=== PATIENT | female | born 1965 | race Caucasian/White ===

== ENCOUNTER 2020-06-14 09:06 | Observation (INO) | payer OTHER, SELFPAY ==
[2020-06-14] VITALS (10 sets, daily range): BP systolic 137–161; BP diastolic 70–98; PULSE 50–77; RESP 14–22; TEMP 36.6–37.1; O2SAT 94–100; BMI 38.7; BMI 37.0
--- NOTE | 2020-06-14 09:20 | EKG12_ITS ---
Test Reason : CP Blood Pressure : / mmHG Vent. Rate : 069 BPM Atrial Rate : 069 BPM P-R Int : 206 ms QRS Dur : 088 ms QT Int : 414 ms P-R-T Axes : 068 065 038 degrees QTc Int : 443 ms Normal sinus rhythm Normal ECG Confirmed by EFRAIN TRIPATHI, TAMMY ([id number]), medical editor ORI WEBB ([id number]) on 06/16/2020 11:01:37 AM Referred By: SALMA Confirmed By:TAMMY ZUNIGA MD
--- NOTE | 2020-06-14 09:21 | ED.VIS.GEN ---
History of Present Illness Chief Complaint: Chest Pain Narrative: Patient presents with chest tightness over the past 3 days. It is somewhat exertional, it is intermittent. She feels like she has to cough but is not coughing. She has no current shortness of breath she did notice both her legs slightly more swollen than normal, she tells me this is somewhat similar to her prior cardiomyopathy, however not quite as swollen. She has no fever chills. She has no abdominal pain. She has no radiation of the pain. She has no tearing sensation. She has no pleuritic component. She has no DVT or PE risk factors. Past Medical History - Allergies and Home Meds Allergies/Adverse Reactions: Allergies No Known Allergies Allergy (Verified 06/19/15 10:26) Primary Care Physician: Delaney Wheeler NP, DATA PROCESSING CLERK-C [Primary Care Provider] - Past Medical History: - - Pretension, history of cardiomyopathy which seems to have resolved Smoking Status: Never smoker Review of Systems All systems negative except as indicated General: Denies: Fever Eyes: Denies: Visual changes - bilaterally ENT: Denies: Sore throat Cardiovascular: Reports: Chest pain. Denies: Palpitations, Heart racing Respiratory: Denies: Dyspnea, Cough, Sputum Gastrointestinal: Denies: Abdominal pain, Nausea, Vomiting Genitourinary: Denies: Dysuria Musculoskeletal: Denies: Myalgias, Arthralgias, Neck pain Skin: Denies: Rash, Abscess Neurological: Denies: Headache, Weakness Psych: Denies: Depression, Anxiety Endocrine: Denies: Polyuria Hematologic: Denies: Easy bruising Physical Exam Vital Signs/Narrative: Vital Signs Temp Pulse Resp BP Pulse Ox 06/14/20 09:07 98.7 F 77 19 H 161/83 H 100 General: - - Patient is her normal self since she is known to me. She does not appear in significant distress. Head: Normocephalic Eyes: Perrl, EOMI ENT: Moist mucous membranes Neck: Supple Cardiovascular: Regular rate, Regular rhythm, No murmurs Respiratory: No distress, CTA bilaterally, Chest nontender Abdomen: Soft, Nontender Back: Nontender, Normal Inspection. Negative for: CVA tenderness Extremities: Nontender, No edema Skin: Normal color Neurological: Alert, Normal Strength, Normal Sensation Diagnostic/Tx/Re-eval - Rhythm Strip Rhythm Strip: Sinus Rhythm Rate: 69 Ectopy: None - EKG Initial EKG Interpretation: - - Normal sinus rhythm with a rate of 69. Normal OK interval. Normal QTC intervals. Subtle lateral nonspecific ST changes. Otherwise normal EKG Interpreted by emergency doctor - Medical Decision Making Patient has nonspecific ST changes, heart score is a 4. She will need admission for further cardiac work-up. ED Disposition - Plan for ED Patient: Disposition: Acute Care Hospital [facility] Diagnosis: Chest pain Referrals: Delaney Wheeler NP, DATA PROCESSING CLERK-C [Primary Care Provider] -
--- NOTE | 2020-06-14 09:35 | RAD_ITS ---
STUDY: X-RAY CHEST REASON FOR EXAM: Female, 54 years old. CHEST PAIN AND TIGHTNESS WITH ANXIETY. DRY COUGH SINCE SUNDAY. TECHNIQUE: Single AP portable view of the chest. COMPARISON: None. FINDINGS: EKG electrodes are seen. Mild degree of vascular congestion. There is no demonstrated pleural abnormality. Normal size heart. Normal mediastinum and ivania. Normal visualized pulmonary arteries. Normal visualized aortic arch and descending thoracic aorta. There is a dextroscoliosis of the thoracic spine. Prior JOSE rods fixation of the thoracic scoliosis. Normal visualized ribs, clavicles, and shoulders. There is no demonstrated abnormality of the visualized soft tissue structures of the upper abdomen. RAD/Chest 1 View (Portable) IMPRESSION: Mild degree of vascular congestion. Dextroscoliosis. Electronically Signed: Tyree Moran, at 9:48 EDT , Service support ,
[2020-06-14 09:40] LABS: Absolute Lymphocyte Count 1.42 X10^3/uL (0.83-4.51); Basophil# 0.03 X10^3/uL; Basophil% 0.4 % (0-1); Eosinophil# 0.06 X10^3/uL; Eosinophils% 0.9 % (0-5); Hematocrit 36.3 % (37-47); Hemoglobin 11.7 g/dL (12.0-15.0); Lymphocyte # 1.42 X10^3/ul (4.0); Lymphocyte % 20.2 % (19-41); Mean Corp Hgb Conc 32.2 g/dL (32-36); Mean Corpuscular Hgb 30.4 pg (27.0-32.0); Mean Corpuscular Volume 94.3 fL (81-99); Mean Platelet Vol. 9.9 fl (6.2-12.0); Monocyte# 0.46 X10^3/uL; Monocyte% 6.5 % (0-10); NRBC Flagged by Analyzer 0 % (0-5); Neutrophil # 5.04 X10^3/uL (2.7-7.7); Neutrophil % 71.6 % (47-70); Platelet Count 237 K/mm3 (150-450); RBC Distribution Width CV 13.2 % (11.6-14.6); RBC Distribution Width SD 45.1 fl (35.1-43.9); Red Blood Count 3.85 M/mm3 (4.2-5.4)
[2020-06-14 09:50] LABS: Anion Gap 4 (5-15); BUN 12 mg/dL (7-18); BUN/Creat Ratio 15.8 RATIO (10-20); Calcium,Total 8.7 mg/dL (8.5-10.1); Chloride 111 mmol/L (98-107); Creatinine, Serum 0.76 mg/dL (0.55-1.02); EST Glomerular Filtration Rate 85 mL/min (>60); Est Glom Filt Rate - Afr Amer 103 mL/min (>60); Estimated Creatinine Clearance 68.48 ml/min; Glucose 99 mg/dL (74-106); Potassium 3.5 mmol/L (3.5-5.1); Sodium Level 143 mmol/L (136-145)
[2020-06-14] MEDS: Aspirin 81 MG TAB.CHEW 324 MG PO (10:35)
--- NOTE | 2020-06-14 12:25 | EKG12_ITS ---
Test Reason : CP Blood Pressure : / mmHG Vent. Rate : 051 BPM Atrial Rate : 051 BPM P-R Int : 216 ms QRS Dur : 086 ms QT Int : 470 ms P-R-T Axes : 071 067 047 degrees QTc Int : 433 ms Sinus bradycardia with sinus arrhythmia with 1st degree A-V block Otherwise normal ECG When compared with ECG of 09-MAR-2014 14:53, Nonspecific T wave abnormality, improved in Inferior leads Nonspecific T wave abnormality no longer evident in Lateral leads Confirmed by CHARBEL TRIPATHI, VALARIE ([id number]), editor map ORI WEBB ([id number]) on 06/16/2020 11:37:41 AM Referred By: ALLISON Confirmed By:VALARIE BARGER MD
--- NOTE | 2020-06-14 13:04 | HP.PCM_ITS ---
Problem List (1) Chest pain Status: Acute History of Present Illness Date of Admission: 06/14/20 Chief Complaint: chest pain The patient is a 54 year old F whom for the past week, has been having some chest discomfort and dyspnea on exertion. Patient is normally very active and has had some bike rides up [facility]. Normally this provides no difficulty but earlier this week, patient was noticing shortness of breath that would get better when she would stop when she is riding uphill. So she had contacted her primary care doctor and her doctor recommended she come to the emergency room. In the emergency room her work-up was unremarkable. Patient has never had chest pain like this before. They were concerned and patient was admitted to the hospitalist service for further cardiac evaluation. [] Past Medical History Medical History: Medical History (Last Updated 06/14/20 @ 13:[address] Jaswinder Lizama, ) Scoliosis M41.9 spinal rusty HTN (hypertension) I10 Allergies No Known Allergies Allergy (Verified 06/19/15 10:26) Home Medications: Ambulatory Orders Medication Instructions Recorded Lisinopril/Hydrochlorothiazide 1 tablet PO DAILY 06/19/15 [Lisinopril-Hctz 20-25 mg Tab] Aspirin E.C. [Ecotrin] 81 mg PO DAILY@0800 06/14/20 Rutin/Hesp/Bioflav/C/[id number] 1 ea PO DAILY 06/14/20 [Bioflex Tablet] Lives: With Family Smoking Status: Never smoker Tobacco Use: Non-smoker Alcohol: Rare Drugs: None - *Family History Paternal History Items: Heart Disease Review of Systems Constitutional: Denies: Anorexia, Night Sweats Eyes: Denies: Blurred vision, Double vision HEENT: Denies: Head Aches, Sinus Congestion, Sinus Drainage Cardiovascular: Reports: Chest Pain. Denies: Palpitations Respiratory: Reports: Shortness of breath upon exertion, Sputum production. Denies: Cough, Shortness of breath at rest Gastrointestinal: Denies: Abdominal Pain, Nausea, Vomiting Genitourinary: Denies: Dysuria Musculoskeletal: Denies: Joint Pain, Joint Tenderness Skin: Denies: Rash, Wounds Neurological: Denies: Numbness, Tingling, Focal weakness Hematologic/ Lymphatic: Denies: Easy Bruising, Easy Bleeding, Hx of blood clot Comment: All review of systems were negative except as mentioned above in the history of present illness and the other review of systems. VTE Information - Inpt Only VTE Present on Admission: No VTE Mechan Device Prophylaxis: None VTE Pharm Prophylaxis ordered?: No Patient Problems: Active and Suspected Problems Chest pain (Acute) - Physical Exam Vitals/I&O's: Vital Signs Temp Pulse Resp BP Pulse Ox 36.8 C 58 L 14 157/78 H 95 06/14/20 12:34 06/14/20 12:34 06/14/20 12:34 06/14/20 12:34 06/14/20 12:34 Oxygen Delivery Method Room Air Weight: 93.259 kg Body Mass Index (BMI) 37.0 General: Alert, No apparent distress HEENT: Atraumatic, Normocephalic Oral: Moist Mucosa, No Gingival or Mucosal Lesions/ Ulcerations Neck: No Nodes, Thyroid Normal Size and Texture Lungs: Clear to auscultation, Normal air movement, No rhonchi, No wheeze, No rales Cardiovascular: Regular rate, Regular Rhythm, Normal S1, Normal S2, No murmurs Abdomen: Bowel Sounds Present, Soft, Non Tender, Non-Distended, No Hepato- splenomegaly Extremities: No edema, No Calf Tenderness Skin: No rashes, No breakdown Musculoskeletal: - - No reproducible sternal tenderness. Psych/Mental Status: Normal Affect, Appropriate Laboratory Results 06/14/20 09:15: WBC 7.0, RBC 3.85 L, Hgb 11.7 L, Hct 36.3 L, MCV 94.3, MCH 30.4, MCHC 32.2, RDW Std Deviation 45.1 H, RDW Coeff of Bello 13.2, Plt Count 237, MPV 9.9, Immature Gran % (Auto) 0.400, Neut % (Auto) 71.6 H, Lymph % (Auto) 20.2, Kimble % (Auto) 6.5, Eos % (Auto) 0.9, Baso % (Auto) 0.4, Absolute Neuts (auto) 5.0, Absolute Lymphs (auto) 1.42, Nucleated RBC % 0 06/14/20 09:15: Sodium 143, Potassium 3.5, Chloride 111 H, Carbon Dioxide 28.0, Anion Gap 4 L, BUN 12, Creatinine 0.76, Estim Creat Clear Calc 68.48, Est GFR (MDRD) Af Amer 103, Est GFR (MDRD) Non-Af 85, BUN/Creatinine Ratio 15.8, Glucose 99, Calcium 8.7, Troponin I < 0.015 06/14/20 09:15: B-Natriuretic Peptide 386.0 H 06/14/20 12:33: Troponin I < 0.015 Chest x-ray personally reviewed showed significant scoliosis with convexity to the right. Vertebral rusty in place. No pulmonary effusions, infiltrate nor edema. EKGs personally reviewed and showed no acute changes. Current Medications Sodium Chloride () 10 - 40 ml IV UD PRN PRN Reason: SALINE FLUSH Assessment/Plan All Active Problems Chest pain (Acute) 1. Chest pain * LISA score of 1. Lila score of 72. * Plan is for treadmill stress test on the . * Patient did receive aspirin in the emergency room and will continue * Supportive management * Check a d-dimer, and if greater than 0.52, check a CTA of the chest. 2. Hypertension: Continue lisinopril/HCTZ 3. VTE prophylaxis: Not indicated as patient is low risk given her observation status 4. Advanced care planning: Patient is full CODE STATUS. OBSV E&M: 05736 Initial observation care L2
[2020-06-14 13:50] LABS: D-Dimer Quantitative (DVT/PE) 1.99 FEU/ug/m (0.27-0.49)
--- NOTE | 2020-06-14 13:57 | CT_ITS ---
STUDY: CTA CHEST REASON FOR EXAM: Female, 54 years old. CHEST PAIN W/ ANXIETY X 3 DAYS. DRY COUGH, B/L LEG SWELLING, ELEVATED D-DIMER. RADIATION DOSAGE (If Supplied By Facility): CTDIvol = ( 12.31 ) mGy, DLP = ( 509.94 ) mGycm TECHNIQUE: The examination was performed with the intravenous administration of IV 100mL Isovue-370. Post-processing of the angiographic images was performed, with multiplanar reformation and 3D reconstruction. Individualized dose optimization techniques were used for this CT. COMPARISON: Comparison is made with prior chest radiograph done earlier today. FINDINGS: Small bilateral benign appearing axillary lymph nodes. Normal enhancement of the main pulmonary artery and right and left pulmonary arteries. Normal enhancement of the bilateral peripheral pulmonary arteries. There is no demonstrated pulmonary embolism. Normal thoracic aorta and visualized great vessels. There is no demonstrated aortic dissection. Normal heart and pericardium. Normal mediastinum. Normal hilar regions. Normal visualized trachea and bronchi. The lungs are well expanded. Small bilateral pleural effusions right greater than left with bibasilar atelectasis and/or infiltrates. Minimal increased markings are seen in the medial aspect of the right middle lobe. Normal chest wall structures. There are degenerative changes of thoracic spine. Dextroscoliosis. Bharathi fixation device seen at the level of the thoracic spine. Normal visualized upper abdomen. CT/CTA Chest W/WO Contrast IMPRESSION: Small bilateral pleural effusions right greater than left with bibasilar atelectasis and/or infiltrates. Electronically Signed: Tyree Moran, at 14:50 EDT , Service support ,
[2020-06-14] MEDS: Acetaminophen 325 MG Tablet 650 MG PO (16:44)
--- NOTE | 2020-06-14 17:23 | ECHOCS_ITS ---
Reason For Study: Pleural Effusion Procedure This was a 2D Doppler, Color Flow transthoracic echocardiogram. The study was technically difficult. Contrast injection was performed. Exam performed in department. Left Ventricle Normal LV size. Left ventricular systolic function is normal. The estimated ejection fraction is 55 %. No evidence for diastolic dysfunction. No regional wall motion abnormalities noted. Right Ventricle Normal RV size. Normal systolic function. Atria Normal left atrium. Normal right atrium. No doppler evidence for ASD. Mitral Valve There is no mitral annular calcification. Normal mitral valve. Trivial mitral valve insufficiency. Tricuspid Valve Normal tricuspid valve. Mild tricuspid valve insufficiency. Right ventricular systolic pressure estimated to be 30 mmHg. Aortic Valve Trisinus/trileaflet aortic valve. Mild focal aortic valve calcification. Mild (1+) aortic valve insufficiency. Pulmonic Valve The pulmonic valve is not well visualized. Mild (1+) eccentric pulmonic valve insufficiency. Great Vessels Normal sized aortic root. Pericardium/Pleural No pericardial effusion. Medication Diluted definity 2ml given slow IV push to enhance endocardial definition. MMode/2D Measurements & Calculations LVIDd: 5.3 cm IVSd: 0.93 cm Ao root diam: 3.5 cm LVIDs: 3.6 cm LVPWd: 1.1 cm LA dimension: 3.8 cm RVDd: 4.2 cm FS: 31.1 % LAV(MOD-bp): 50.3 ml LA A4 area: 16.9 cm2 RA A4 area: 17.0 cm2 LAV(MOD-bp) Indexed: 26.1 ml/m2 LAV(MOD-sp2): 55.7 ml LAV(MOD-sp4): 41.9 ml Time Measurements MV dec time: 0.18 sec Doppler Measurements & Calculations MV E max benjamín: 96.5 cm/sec Lat Peak E' Benjamín: 11.2 cm/sec Med Peak E' Benjamín: 11.7 cm/sec MV A max benjamín: 74.3 cm/sec E/E' lat: 8.6 E/E' med: 8.3 MV E/A: 1.3 MV V2 max: 107.8 cm/sec MV P1/2t max benjamín: 107.8 cm/sec Ao V2 max: 159.2 cm/sec MV max P.7 mmHg MV P1/2t: 78.5 msec Ao max P.1 mmHg MV V2 mean: 57.4 cm/sec MV dec slope: 402.6 cm/sec2 MV mean P.5 mmHg MV V2 VTI: 39.3 cm MVA(P1/2t): 2.8 cm2 AI max benjamín: 431.4 cm/sec LV V1 max: 89.1 cm/sec PA V2 max: 92.5 cm/sec AI max P.4 mmHg LV V1 max P.2 mmHg AI dec slope: 207.1 cm/sec2 AI P1/2t: 610.0 msec TR max benjamín: 258.7 cm/sec TR max P.0 mmHg Interpretation Summary The study was technically difficult. Contrast injection was performed. Left ventricular systolic function is normal. The estimated ejection fraction is 55 %. Trivial mitral valve insufficiency. Mild tricuspid valve insufficiency. Mild focal aortic valve calcification. Mild (1+) aortic valve insufficiency. Mild (1+) eccentric pulmonic valve insufficiency. Right ventricular systolic pressure estimated to be 30 mmHg. No evidence for diastolic dysfunction. Ordering Physician: Jaswinder Lizama Referring Physician: Delaney Wheeler Performed By: Jens Mora RCS
[2020-06-14] MEDS: hydroCHLOROthiazide 25 MG Tablet PO (21:03)
[2020-06-14] MEDS: Lisinopril 20 MG Tablet PO (21:03)
[2020-06-15 01:58] VITALS: BP 131/70; PULSE 55; RESP 16; TEMP 36.4; O2SAT 99
[2020-06-15 03:00] VITALS: PULSE 47
--- NOTE | 2020-06-15 05:00 | EKG12_ITS ---
Test Reason : AM EKG Blood Pressure : / mmHG Vent. Rate : 055 BPM Atrial Rate : 055 BPM P-R Int : 210 ms QRS Dur : 088 ms QT Int : 466 ms P-R-T Axes : 068 066 059 degrees QTc Int : 445 ms Sinus bradycardia with 1st degree A-V block Otherwise normal ECG Confirmed by EFRAIN TRIPATHI, TAMMY ([id number]), film and video editor ORI WEBB ([id number]) on 06/17/2020 1:11:24 PM Referred By: DR DE PAZ Confirmed By:TAMMY ZUNIGA MD
--- NOTE | 2020-06-15 05:55 | STEWCON_ITS ---
Reason For Study: Chest Pain Stress Results Protocol: Aleks Protocol WITH DEFINITY Maximum Predicted HR: 168 bpm Target HR: 143 bpm % Maximum Predicted HR: 86 % DurationHeart Rate Stage (mm:ss) (bpm) BP Comment Baseline 52 128/80Mild Chest Pain; 2 ML Diluted Definity Given Aleks Protocol Stage I 3:00 121 134/68Mild Chest Pain; Mild Dyspnea Aleks Protocol Stage II 3:00 137 150/72Mild Chest Pain; Mod Dyspnea Aleks Protocol Stage III 0:30 144 / Mild Chest Pain; Mod to Severe Dyspnea Recovery 83 130/76Mild Chest Pain; No Dyspnea Stress Duration: 6:30 mm:ss Maximum Stress HR: 144 bpm METS: 8 Baseline Echocardiogram Findings Stress Echo Wall motion Data Resting WM Intermediate WM Stress WM Resting Wall Motion Wall Motion Stress All segments Normal. All segments Hyperkinetic. Ejection Fraction 60 %. Ejection Fraction 70 %. Stress Results Heart rate response: Appropriate Blood pressure response: Normal resting blood pressure-appropriate response Arrhythmias: Occasional PVC during exercise Functional capacity: Average Stopped secondary to: Dyspnea. EKG Data Baseline ECG: Sinus bradycardia. Peak exercise ECG: No obvious ECG changes. Symptoms with Stress The patient noted mild chest pain pretest, during exercise, and recovery and progressive shortness of breath during exercise with improvement in recovery. Interpretation Summary 1. Contrast injection performed 2. Negative (adequate) stress echocardiogram Ordering Physician: Jaswinder Lizama D.O. Referring Physician: Jesús Hwang Performed By: Jens Mora RCS
[2020-06-15 05:56] VITALS: BP 146/68; PULSE 56; RESP 16; TEMP 36.2; O2SAT 96
[2020-06-15] MEDS: Aspirin E.C. 81 MG Tablet PO (05:58)
[2020-06-15] MEDS: Lisinopril 20 MG Tablet PO (05:58)
[2020-06-15] MEDS: Acetaminophen 325 MG Tablet 650 MG PO ×2 (05:59→12:16)
[2020-06-15 06:33] VITALS: PULSE 64
[2020-06-15 11:41] VITALS: PULSE 62
[2020-06-15 12:07] VITALS: BP 135/68; PULSE 50; RESP 14; TEMP 36.8; O2SAT 95
[2020-06-15] MEDS: hydroCHLOROthiazide 25 MG Tablet PO (12:14)
--- NOTE | 2020-06-15 14:48 | PCM.DC ---
- Discharge Diagnoses Current Active Problems: Current Active and Chronic Problems (Last Updated 06/14/20 @ 13:[address] Jaswinder Lizama, DO) Chest pain (Acute) You will use the following diet at home:: No restrictions Discharge Activity: Return to Normal Activity, - - no high-imact activities for the next week. Gradually ease back into your normal exercise routine over the next few weeks. Call your doctor if you observe: Fever of 101 or Higher, Shortness of breath Allergies/Adverse Reactions: Allergies No Known Allergies Allergy (Verified 06/19/15 10:26) Medications to take at Discharge Lisinopril/Hydrochlorothiazide [Lisinopril-Hctz 20-25 mg Tab] 1 tablet PO DAILY 06/19/15 Aspirin E.C. [Ecotrin] 81 mg PO DAILY@0800 06/14/20 Rutin/Hesp/Bioflav/C/[id number] [Bioflex Tablet] 1 ea PO DAILY 06/14/20 Levofloxacin [Levaquin] 500 mg PO DAILY #5 tab 06/15/20 The following prescriptions were given: Levofloxacin [Levaquin] 500 mg PO DAILY #5 tab Transmission Status: Pending to [facility] [facility] Primary Care Physician: Delaney Wheeler NP, AIRPORT PLANNER-C [Primary Care Provider] - Within 1 Week Test Results: Test results from this visit will be discussed in further detail at your follow-up appointment, if applicable. Proposed Discharge Date: 06/15/20
--- NOTE | 2020-06-15 14:50 | DS.PCM_ITS ---
Discharge Date and Diagnosis - Problem List Patient Problems: Active and Suspected Problems (Last Updated 06/14/20 @ 13:[address] Jaswinder Lizama DO) Chest pain (Acute) Pneumonia (Acute) Date of Admission: 06/14/20 Date of Discharge: 06/15/20 - Primary Discharge Diagnosis Acute Problems: Active Problems (Last Updated 06/14/20 @ 13:[address] Jaswinder Lizama DO) Chest pain (Acute) Hospital Course and Treatment Imaging Results: 06/15/20 05:55 Stress Test Echo W/Contrast [ECHO] AM (NON MEDS) Clinical Impression(s) from Imaging Studies Chest X-Ray 06/14/20 09:35 IMPRESSION: Mild degree of vascular congestion. Dextroscoliosis. Electronically Signed: Tyree Moran, at 9:48 EDT , Service support , Chest CTA 06/14/20 13:57 IMPRESSION: Small bilateral pleural effusions right greater than left with bibasilar atelectasis and/or infiltrates. Electronically Signed: Tyree Moran, at 14:50 EDT , Service support , Operations: None Procedures: 2-D Echocardiogram - Left ventricular systolic function is normal. The estimated ejection fraction is 55 %. Trivial mitral valve insufficiency. Mild tricuspid valve insufficiency. Mild focal aortic valve calcification. Mild (1+) aortic valve insufficiency. Mild (1+) eccentric pulmonic valve insufficiency. Right ventricular systolic pressure estimated to be 30 mmHg. No evidence for diastolic dysfunction., Stress test - 1. Contrast injection performed 2. Negative (adequate) stress echocardiogram Summary of Care Provided: The patient is a 54 year old F presents with chest pain. Patient has noted some chest pain as well as dyspnea on exertion. Was concerned and presented to the hospital. Patient underwent a extensive work-up with stress test and echocardiogram which were unremarkable. Patient did have elevated d-dimer and did have a CT angiogram of the chest. The CT angiogram did not show any pulmonary embolism but did show some infiltrate and small effusions. Patient was afebrile and had no leukocytosis, however, is felt the patient may have had an early onset of pneumonia and will be discharged with levofloxacin. Patient to follow-up with her primary care doctor to see how she is doing over the next week. Patient was checked for COVID-19 and was negative. Patient did have a patient encounter few weeks back with someone who was COVID-19 positive. [] Patient Problems: Active and Suspected Problems (Last Updated 06/14/20 @ 13:[address] Jaswinder Lizama, DO) Chest pain (Acute) Pneumonia (Acute) - Physical Exam Vitals/I&O's: Vital Signs Temp Pulse Resp BP Pulse Ox 36.8 C 50 L 14 135/68 H 95 06/15/20 12:07 06/15/20 12:07 06/15/20 12:07 06/15/20 12:07 06/15/20 12:07 Oxygen Flow Rate (L/min) 2 Oxygen Delivery Method Room Air Weight: 93.259 kg Body Mass Index (BMI) 37.0 Intake and Output for Last 24 Hours 06/13/20 06/14/20 06/15/20 23:59 23:59 23:59 Intake Total 720 / 960 455 / 455 Balance 720 / 960 455 / 455 General: Alert, No apparent distress HEENT: Atraumatic, Normocephalic Oral: Moist Mucosa, No Gingival or Mucosal Lesions/ Ulcerations Neck: No Nodes, Thyroid Normal Size and Texture Lungs: Clear to auscultation, Normal air movement, No rhonchi, No wheeze Cardiovascular: Regular rate, Regular Rhythm, Normal S1, Normal S2 Abdomen: Bowel Sounds Present, Soft Microbiology Past 72 Hours 06/14/20 20:20 Urine, Clean Catch Legionella Antigen - Final 06/14/20 20:20 Urine, Clean Catch Streptococcus pneumoniae Antigen (M - Final Laboratory Results 06/14/20 15:04: Troponin I < 0.015 06/14/20 17:46: COVID-19 (MAIKEL) Negative Current Medications Acetaminophen (Tylenol) 650 mg PO Q6H PRN PRN PRN Reason: Pain Score 1-10/Temp > 100.7 F Last Admin: 06/15/20 12:16 Dose: 650 mg Documented by: Aspirin (Ecotrin) 81 mg PO DAILY@0800 FREDY Last Admin: 06/15/20 05:58 Dose: 81 mg Documented by: Hydrochlorothiazide (Hctz) 25 mg PO DAILY [facility] Last Admin: 06/15/20 12:14 Dose: 25 mg Documented by: Lisinopril (Zestril) 20 mg PO DAILY [facility] Last Admin: 06/15/20 05:58 Dose: 20 mg Documented by: Nitroglycerin (Nitrostat) 0.4 mg SUBLINGUAL Q5M PRN PRN Reason: CHEST PAIN Ondansetron HCl (Zofran) 4 mg IV Q8H PRN PRN PRN Reason: NAUSEA/VOMITING Oxycodone HCl (Oxyir) 5 mg PO Q4H PRN PRN PRN Reason: Pain Score 4-5/10 Oxycodone HCl (Oxyir) 10 mg PO Q4H PRN PRN PRN Reason: Pain Score 6-10/10 Discharge Diet: No Restrictions Discharge Activity: Return to Normal Activity, - - no high-imact activities for the next week. Gradually ease back into your normal exercise routine over the next few weeks. Call your doctor if you observe: Fever of 101 or Higher, Shortness of breath Home Medications: Medications to take at Discharge Lisinopril/Hydrochlorothiazide [Lisinopril-Hctz 20-25 mg Tab] 1 tablet PO DAILY 06/19/15 Aspirin E.C. [Ecotrin] 81 mg PO DAILY@0800 06/14/20 Rutin/Hesp/Bioflav/C/[id number] [Bioflex Tablet] 1 ea PO DAILY 06/14/20 Levofloxacin [Levaquin] 500 mg PO DAILY #5 tab 06/15/20 Following Prescriptions Were Given to Patient: Levofloxacin [Levaquin] 500 mg PO DAILY #5 tab [facility]: [facility] Primary Care Physician: Delaney Wheeler NP, CHEF SAUCIER-C [Primary Care Provider] - Within 1 Week Disposition: Home Minutes spent on discharge:: 35 Patient Condition:: Good Medical Necessity - Tobacco Use Smoking Status: Never smoker Tobacco Use: Non-smoker Meaningful Use Info Meaningful Use Diagnoses (Choose all that apply): None applicable OBSV E&M: 15183 Observation care discharge
== END 2020-06-15 14:49 | disposition home or self-care (01) ==
LOC: ED 10:44 → PCU 13:09
PROVIDERS: Emergency Provider Emergency Medicine; PCP Nurse Practitioner Primary Care
DX: J18.9 Pneumonia, unspecified organism (principal); I10 Essential (primary) hypertension; M41.9 Scoliosis, unspecified; Z79.899 Other long term (current) drug therapy; Z79.82 Long term (current) use of aspirin; R00.1 Bradycardia, unspecified; I08.3 Combined rheumatic disorders of mitral, aortic and tricuspid valves
CPT/HCPCS: 36415; 71045; 71275; 80048; 83880; 84484; 85025; 85379; 87070; 87205; 87449; 87635; 93005; 93017; 93306; 93350; 99218; 99285; C9803; Q9957; Q9967; A4216; C8928; C8929; G0378; U0003

== ENCOUNTER 2020-07-10 20:06 | Emergency (ER) | payer OTHER, SELFPAY ==
[2020-06-14 12:01] VITALS: BMI 37.0
[2020-07-10 20:07] VITALS: BP 133/93; PULSE 89; RESP 16; RESP 18; TEMP 36.1; O2SAT 98; BMI 34.9
--- NOTE | 2020-07-10 20:15 | RAD_ITS ---
STUDY: X-RAY - CERVICAL SPINE REASON FOR EXAM: Female, 54 years old. Fell and hit head and nose on ground. Neck pain after trauma evaluation for fracture TECHNIQUE: 4 view(s) of the cervical spine were obtained. COMPARISON: 19 June 2015 FINDINGS: Normal anterior atlantoaxial articulation. Normal odontoid process. Normal cervical lordosis. Normal vertebral bodies and endplates. Normal disc space heights. Normal visualized intervertebral neuroforamina. The soft tissue structures are unremarkable. There is thoracic scoliosis. RAD/Cerv Spine 2 or 3 Views IMPRESSION: Normal x-ray examination of the visualized cervical spine. Electronically Signed: Kaiden Glass, at 20:56 EDT Tel , Service support ,
--- NOTE | 2020-07-10 20:15 | CT_ITS ---
STUDY: CT BRAIN WITHOUT CONTRAST REASON FOR EXAM: Female, 54 years old. S/P FALL, HITTING FACE ON GROUND, NASAL INJURY, HIT ON FRONTAL SINUS AREA AND THEN POSTERIOR HEAD WITH ROCK, NO LOC, C/O NECK PAIN AND FRONTAL PAIN RADIATION DOSAGE (If Supplied By Facility): CTDIvol = ( 44.99 ) mGy, DLP = ( 931.09 ) mGycm TECHNIQUE: Transaxial CT imaging of the brain was performed without administration of intravenous contrast material. Individualized dose optimization techniques were used for this CT. COMPARISON: Prior study of 06/19/2015 FINDINGS: Normal soft tissue structures. Normal calvarium. Normal size ventricles and extra-axial spaces for the patient''s age. Normal white matter tracts of the cerebral hemispheres. Normal basal ganglia and thalami. Normal brainstem. Normal cerebellum. There is no intracranial hemorrhage. There are no findings of an acute ischemic infarction. Normal visualized paranasal sinuses. CT/Brain/Head without Contrast IMPRESSION: Normal unenhanced CT scan of the brain. Electronically Signed: Dario Martini MD at 20:54 EDT , Service support ,
--- NOTE | 2020-07-10 20:17 | ED.DCSUM_ITS ---
- ER Visit Summary Date of Service: 07/10/20 Chief Complaint: [Fall with head and neck injury] History of Present Illness: The patient is a 54 F [presents to the emergency department with history of a fall approximately 6:30 PM. Patient states she was hiking when she tripped on a root and struck her head and nose on a rock. Patient states that she felt a crunch in her nose. No loss of consciousness. She is complaining of some soreness in her neck. She was able to drive herself home. She describes a mild headache. She denies visual changes. She is not on any blood thinners. Unsure of her last tetanus. Denies any other injuries.] She denies any paresthesias in the extremities. She denies weakness in extremities. Physical Examination: [HEENT-PERRLA, EOMI. Cranial nerves II through XII grossly intact. TMs clear. Mucous membranes moist. No adenopathy. Patient do es have slight depression over the nasal bone and frontal sinus noted. Some mild crepitance over the nasal bone. There is no blood in the nasal vaults and no septal hematomas noted. No hemotympanum is noted. Patient has some mild C- spine tenderness on palpation. There is no bony step-offs. She has good range of motion is painless. Cardiovascular-regular rate and rhythm without murmur or ectopy Lungs-clear to auscultation, chest wall stable without crepitus or subcu emphysema Abdomen-normoactive bowel sounds, soft, nontender, no rebound or rigidity, no peritoneal signs. Extremities-intact ?4, normal range of motion, normal pulses, atraumatic] Test Results: [CT scan of the brain was unremarkable. X-rays of the cervical spine showed no fractures.] Emergency Department Course and Treatment: [] Treatment Plan: [Patient advised to use ice to the area and use ibuprofen or Tylenol for discomfort.] Disposition: [Discharged home in stable condition] Impression: [Mechanical fall Closed head injury Facial contusion Cervical strain] This note was generated with [employer] software. It may contain incorrect words, spelling, and punctuation that were not noted in review of the chart prior to signing ED Disposition - Plan for ED Patient: Referrals: Delaney Wheeler NP, PROP SETTER-C [Primary Care Provider] -
--- NOTE | 2020-07-10 21:02 | DCINST.ED_ITS ---
ED Disposition - Plan for ED Patient: Instructions: ED Head Injury Adult, ED Sprain Strain Neck, ED CONTUSION Face No Wake Up] Referrals: Delaney Wheeler CORPORATE LEGAL ASSISTANT, CORPORATE LEGAL ASSISTANT-C [Primary Care Provider] - 5-7 Days
--- NOTE | 2020-07-10 21:02 | ED.DEP ---
ED Disposition - Plan for ED Patient: Instructions: ED Head Injury Adult, ED Sprain Strain Neck, ED CONTUSION Face No Wake Up] Referrals: Delaney Wheeler RESIDENTIAL ADVISOR, RESIDENTIAL ADVISOR-C [Primary Care Provider] - 5-7 Days
[2020-07-10] MEDS: Diphth,Pertuss(Acell),Tet Vac 0.5 ML Vial IM (21:05)
== END 2020-07-10 21:35 | disposition home or self-care (01) ==
LOC: ED 20:55
PROVIDERS: Emergency Provider Emergency Medicine; PCP Nurse Practitioner Primary Care
DX: S16.1XXA Strain of muscle, fascia and tendon at neck level, initial encounter (principal); S00.83XA Contusion of other part of head, initial encounter; I10 Essential (primary) hypertension; Z79.899 Other long term (current) drug therapy; W01.0XXA Fall on same level from slipping, tripping and stumbling without subsequent striking against object, initial encounter; Y93.01 Activity, walking, marching and hiking; Y92.89 Other specified places as the place of occurrence of the external cause; Y99.8 Other external cause status
CPT/HCPCS: 70450; 72040; 90715; 99282

== ENCOUNTER 2021-04-05 20:37 | Emergency (ER) | payer OTHER, SELFPAY ==
[2021-03-22 10:47] VITALS: BMI 35.9
[2021-04-05 20:37] VITALS: BP 153/82; PULSE 91; RESP 18; TEMP 36.7; O2SAT 97; BMI 35.4
[2021-04-05] MEDS: HYDROmorphone 0.5 MG/0.5 ML SYRINGE IM (21:26)
--- NOTE | 2021-04-05 21:37 | EX.ED.DYSGE1 ---
HPI History of Present Illness Chief Complaint: Nosebleed Narrative Narrative: Patient presents with left epistaxis that started earlier today stopped for some time and now it progressed it started on the left side but then she had bilateral epistaxis then she had quite a bit of clots in the back of her throat and now she has some nausea from swelling declines. She is not anticoagulated. No history of trauma. [facility] Medical History (Updated 04/05/21 @ 21:[address] Jesús Nguyen MD) HTN (hypertension) Scoliosis spinal rusty Home Medications lisinopril-hydrochlorothiazide 1 tab PO DAILY 06/19/15 [History Last Taken 06/13/20 11:00] aspirin 81 mg PO DAILY@0800 06/14/20 [History Last Taken 06/14/20 09:00] vit [id number] 1 ea PO DAILY 06/14/20 [History Last Taken 06/13/20 11:00] albuterol sulfate 90 mcg/actuation aerosol inhaler 2 puff INHALATION Q6H PRN 03/22/21 [History Last Taken Unknown] clindamycin HCl 150 mg PO Q6H #16 cap 04/05/21 [Rx Last Taken Unknown] oxycodone-acetaminophen [Percocet] 1 tab PO Q8H PRN 3 Days #10 tab 04/05/21 [Rx Last Taken Unknown] Allergy/AdvReac Type Severity Reaction Status Date / Time No Known Allergies Allergy Verified 04/05/21 20:38 Social History Smoking Status: Never smoker ROS ROS ED ROS Narrative Past medical history: Reviewed Medications: Reviewed Social history: Noncontributory Review of systems: All systems negative except as indicated General: No fever ENT: Epistaxis as in HPI Neck: No neck pain Cardiovascular: No chest pain Respiratory: No shortness of breath or cough Gastrointestinal: Some nausea Hematologic: No easy bleeding or easy bruising EXAM Physical Exam Narrative Exam Narrative: Physical exam General: Patient appears anxious Head: Normocephalic, Atraumatic Eyes: Conjunctiva not pale ENT: Left-sided epistaxis this is an anterior bleed however it is quite brisk. There are clots in the back of her throat. Neck: Supple, Nontender, No lymphadenopathy Cardiovascular: Regular rate, Regular rhythm Skin: Normal color, No rash Neurological: Alert, Normal Strength, Normal Sensation Psychological: Somewhat anxious appearing Const Vital Signs: 04/05/21 20:37 Temperature 98.1 F Temperature Source Temporal Pulse Rate 91 Respiratory Rate 18 Blood Pressure 153/82 H Blood Pressure Mean 105 Pulse Ox 97 Oxygen Delivery Method Room Air MDM MDM MDM Narrative Medical decision making narrative: Epistaxis now stopped after the Rhino Rocket. She is not anticoagulated. She was observed and does not rebleed. Should be discharged with antibiotics and analgesia as well as ENT consult. Procedures Other Procedures Procedure(s): Epistaxis management Verbal consent obtained A 5-1/2 cm nasal balloon Rhino Rocket was inserted by me, the balloon was blown up with about 4 to 5 mL of air. Epistaxis was achieved patient did have pain but overall tolerated procedure well. Discharge Plan Triage Chief Complaint: Nosebleed ED Provider: Jesús Nguyen Dx/Rx/DC Orders Clinical Impression: Anterior epistaxis Instructions: ED Epistaxis (Adult) Prescriptions: New clindamycin HCl 150 mg capsule 150 mg PO Q6H Qty: 16 RF: 0 oxycodone-acetaminophen [Percocet] 5-325 mg tablet 1 tab PO Q8H PRN (Reason: pain) 3 Days Qty: 10 RF: 0 No Action albuterol sulfate [Ventolin HFA] 90 mcg/actuation HFA aerosol inhaler 2 puff inhalation Q6H PRN (Reason: sob) RF: 0 lisinopril-hydrochlorothiazide 1 EACH tablet 1 tab PO DAILY RF: 0 aspirin 81 MG tablet 81 mg PO DAILY@0800 RF: 0 vit [id number] 1 EACH tablet 1 ea PO DAILY RF: 0 Primary Care Provider: Delaney Wheeler NP Referrals: Delaney Wheeler NP, JAVA LEAD ENGINEER-C [Primary Care Provider] - Jaswinder Mitchell MD [STAFF PHYSICIAN] - 2 Days Disposition Disposition: Home, Self Care
[2021-04-05 21:57] VITALS: BP 127/84; PULSE 73; RESP 16; O2SAT 100
== END 2021-04-05 22:12 | disposition home or self-care (01) ==
PROVIDERS: Emergency Provider Emergency Medicine; PCP Nurse Practitioner Primary Care
DX: R04.0 Epistaxis (principal); I10 Essential (primary) hypertension; Z79.899 Other long term (current) drug therapy
CPT/HCPCS: 30901; 96372; 99282

== ENCOUNTER → 2021-04-08 20:18 | Outpatient (CLI) | payer OTHER, SELFPAY ==
[2021-03-22 10:47] VITALS: BMI 35.9
== END ==
PROVIDERS: PCP Nurse Practitioner Primary Care; Referring Provider Internal Medicine Critical Care Medicine; Visit Provider Internal Medicine Critical Care Medicine
DX: G47.10 Hypersomnia, unspecified (principal); M41.9 Scoliosis, unspecified; R06.00 Dyspnea, unspecified
CPT/HCPCS: 95810

== ENCOUNTER → 2021-05-10 20:00 | Outpatient (CLI) | payer OTHER, SELFPAY | PROVIDERS: PCP Nurse Practitioner Primary Care; Referring Provider Nurse Practitioner Acute Care; Visit Provider Nurse Practitioner Acute Care | DX: G47.33 Obstructive sleep apnea (adult) (pediatric) (principal) | CPT/HCPCS: 95811 ==

== ENCOUNTER → 2021-05-17 13:06 | Outpatient (CLI) | payer OTHER, SELFPAY ==
[2021-03-22 10:47] VITALS: BMI 35.9
[2021-04-26 11:54] VITALS: BMI 35.8
[2021-05-17 13:31] VITALS: PULSE 110; PULSE 111; PULSE 114; PULSE 115; PULSE 83; PULSE 89; O2SAT 93; O2SAT 94; O2SAT 95; O2SAT 96; O2SAT 97
--- NOTE | 2021-05-17 14:10 | PCM.PSN.6M ---
PSN 6 Minute Walk Test 6 Minute Walk Test 6 Minute Walk Test: 6 Minute Walk Test PSN:6-Minute Walk Test Start: 05/17/21 13:31 Freq: Status: Active Protocol: RESP.6MINW Document 05/17/21 13:31 RAQUEL (Rec: 05/17/21 13:34 RAQUEL [id number]) 6 Minute Walk Test Date Performed 05/17/21 Time Performed 13:15 Height 5 ft 3 in Weight: 90.718 kg Weight in Pounds 200.[address]: Aleks Ballard Assistive device used: None Pre-test Oxygen Delivery Method Room Air Pulse Ox (%) 97 Pulse Rate (60-100 beats/min) 83 Dyspnea Stephanie Scale (0-10) 0 Exertion Stephanie Scale (6-20) 6 1st minute Oxygen Delivery Method Room Air Pulse Ox (%) 96 Pulse Rate (60-100 beats/min) 111 H 2nd minute Oxygen Delivery Method Room Air Pulse Ox (%) 95 Pulse Rate (60-100 beats/min) 110 H 3rd minute Oxygen Delivery Method Room Air Pulse Ox (%) 95 Pulse Rate (60-100 beats/min) 114 H 4th minute Oxygen Delivery Method Room Air Pulse Ox (%) 94 Pulse Rate (60-100 beats/min) 115 H 5th minute Oxygen Delivery Method Room Air Pulse Ox (%) 93 Pulse Rate (60-100 beats/min) 115 H 6th minute Oxygen Delivery Method Room Air Pulse Ox (%) 94 Pulse Rate (60-100 beats/min) 114 H Dyspnea Stephanie Scale (0-10) 2 Exertion Stephanie Scale (6-20) 12 Post-test Oxygen Delivery Method Room Air Pulse Ox (%) 97 Pulse Rate (60-100 beats/min) 89 Full Laps Walked 26 Partial Lap, Number of Tiles Walked 12 Total Distance Walked (ft) 1546 Interpretation Interpretation: Patient was able to walk 1546 feet over the course of 6 minutes on room air with no assistive devices or breaks. The patient experienced no significant desaturation, but did have tachycardia as high as 115 bpm. These findings are consistent with a cardiovascular limitation exercise tolerance. Recommendations Recommendations: The patient requires no supplemental oxygen at this time. Patient may benefit from a cardiovascular evaluation.
== END ==
PROVIDERS: PCP Nurse Practitioner Primary Care; Referring Provider Internal Medicine Critical Care Medicine; Visit Provider Internal Medicine Critical Care Medicine
DX: R06.00 Dyspnea, unspecified (principal); G47.10 Hypersomnia, unspecified; M41.9 Scoliosis, unspecified
CPT/HCPCS: 94618

== ENCOUNTER 2022-06-09 07:00 | Outpatient (RCR) | payer OTHER, SELFPAY ==
--- NOTE | 2022-05-02 16:34 | HP.PTEVAL ---
Patient's Visit Information PHYLLIS PATINO is a 56 year old F referred to Physical Therapy by Dr. Rush Gambino DPM with a diagnosis of B Achilles tendonitis. Date of Evaluation: 05/02/22 Physical Therapist: Jaswinder Trejo DPT, OCS, CSCS - Visit Plan Frequency: 3x /Week Duration: 4-6 Weeks Plan: 3x/week for 4-6 weeks. rollotu and STM and stretching gastroc and soleus B, ankle mobs for DF. eccentric strength adn ankle stabs. activity modfiication. US, TENS and consider heel lift if needed for pain - Subjective B achilles painful R >L. Gets continued steroid oral which help temporarily. Has been off since January. They have been painful since October. Some pain since 2016 on and off. intermittent pain throughout the year without reason and just tuffs it out. No other treatments other than steroids. has gotten orthotics one week ago and hard to tell if it will help. No specific exercises, sometimes drops foot off step to stretch. 0/10 currently, sometimes hurts in am or steps in am for laundry. pain is achilles r>L 3/10. Loves hiking. [place] and could hardly walk. used to walk 5 miles per day but has replaced it with bike riding. Sleep is OK except when it is really inflammed. back in January is last interruption. Employed as crisis therapist, lots of administrative stuff. Stiff upon arising from chair. Stairs can hurt at work. Walks short distances with dog but riding bike alot more. Has forefoot pain L at metatarsals. - Pain B achilles Pain Intensity (Out of 10): 0 Pain Intensity Range: 0, 3 - Objective Walks without antalgia today, steps reciprocally . Transfers I. 0 DF AROM very tight gastroc and soleus. Full PF inv and eversion all 4+/5 strength. No pain today . Mildly tender in R>L achilles. knee adn hip AROM and strength are WFL and without pain. - talar tilt. - Balance/Special Test Scores Lower Extremity Functional Score: 46 - Goals Goal 1:: Pain in achilles 0-1/10 at worst adn 75% better Goal Time Frame: 4-6 Weeks Goal 2:: I appropr management of condition. Goal Time Frame: 4-6 Weeks Goal 3:: Walk for fitness without increased pain Goal Time Frame: 4-6 Weeks - Rehabilitation Potential Physical Therapy Diagnosis: B achilles chronic tendonitis. Rehabilitation Potential: Fair - Anticipated Interventions Patient/Client Instruction: Educate patient on: Condition, Plan of Care For the Purpose of:: To decrease pain, To improve muscle performance and motor function, To increase tolerance to activity/condition/position, To improve ability of physical actions for home/community/work/leisure Therapeutic Exercise to Include: Strength training, Agility training, Flexibilty training, Passive ROM, Active ROM For the Purpose of:: To decrease pain, To decrease swelling/inflammation, To increase ROM, To improve muscle performance and motor function, To increase tolerance to activity/condition/position Manual Therapy Techniques to Include: Mobilization, Passive ROM, Soft tissue mobilization For the Purpose of:: To decrease swelling/inflammation, To increase ROM TENS: Yes Cryotherapy (ice pack, ice massage): Yes Ultrasound (thermal/non thermal): Yes For the Purpose of:: To decrease pain, To increase ROM, To improve muscle performance and motor function Thank you for the opportunity to evaluate your patient. For Medicare and Medicare HMO plans, please review the plan of care and approve it. It will need to be FAXED BACK to us at [phone] for Medicare purposes. For Medicare only, by signing this I certify the plan of care. Please let me know if there are questions or concerns regarding this plan of care. Physician Signature: Date:
--- NOTE | 2022-05-26 07:57 | HP.PTREVAL ---
Dr. Rush Gambino, DPM, It has been my pleasure to treat PHYLLIS PATINO over the last 8 visits for B Achilles tendonitis. Please see the progress note below for an update on the physical therapy plan of care! Subjective: Im getting better. Much more stable and no more pain in R leg at all. It's been a couple weeks. L toe hurts now and then but the achilles is OK. Work is not a problem and stretches help. Swelling in ankles is much better. No steroids in a while. HEP: drop stair stretch, will get slant board, ankle strength and balance. Activities are normal. To Jun 17. Big toe on L still hurts but achilles tendons are all better. Walking for fitness approx 30-6- minutes a day. Objective/Function: 7 Df B ankles knees straight and bent. Walks without antalgia or pain. heel raises B and SL withuot pain. Steps are reciprocal without pain today or compensation. Plan Plan: f/u two weeks as needed. Pt may cancel if doing great,, will see doctor in 3 weeks. Will call prior if situation worsens. Balance/Gait/Functional tests - Balance/Special Test Scores Lower Extremity Functional Score: 79 Goals Goal 1:: Pain in achilles 0-1/10 at worst adn 75% better Goal Time Frame: 4-6 Weeks Goal Progress: Goal Met Goal 2:: I appropr management of condition. Goal Time Frame: 4-6 Weeks Goal Progress: Goal Met Goal 3:: Walk for fitness without increased pain Goal Time Frame: 4-6 Weeks Goal Progress: Goal Met Anticipated Interventions Patient/Client Instruction: Educate patient on: Condition, Plan of Care For the Purpose of:: To decrease pain, To improve muscle performance and motor function, To increase tolerance to activity/condition/position, To improve ability of physical actions for home/community/work/leisure Therapeutic Exercise to Include: Strength training, Agility training, Flexibilty training, Passive ROM, Active ROM For the Purpose of:: To decrease pain, To decrease swelling/inflammation, To increase ROM, To improve muscle performance and motor function, To increase tolerance to activity/condition/position Manual Therapy Techniques to Include: Mobilization, Passive ROM, Soft tissue mobilization For the Purpose of:: To decrease swelling/inflammation, To increase ROM TENS: Yes Cryotherapy (ice pack, ice massage): Yes Ultrasound (thermal/non thermal): Yes For the Purpose of:: To decrease pain, To increase ROM, To improve muscle performance and motor function Please do not hesitate to contact me at [phone] by phone or if you have questions or concerns regarding this new plan of care! Sincerely, Jaswinder Trejo, DPT, OCS, CSCS
--- NOTE | 2022-06-09 07:30 | HP.PTDCSUM_ITS ---
It has been my pleasure to treat PHYLLIS PATINO referred by Dr. Rush Gambino, TAMARA, with the diagnosis of B Achilles tendonitis for a total of 9 visit(s). Discharge Date: 06/09/22 Please see the following information for a summary of their discharge status. Subjective: Took a nasty fall two weeks ago leaving the football game transioning to grass in the dark. That left her unable to hike due to knee pain. achilles tendon has been fine. has continued to do HEP stretches. Activities are pretty normal. No achilles. Had to run to [facility] one day and did so without pain. B achilles Pain Intensity (Out of 10): 0 % Improvement: 100 Objective/Function: Full symmetrical ROM and strength in ankles. No tenderness with palpation and still walking well. Goal 1:: Pain in achilles 0-1/10 at worst adn 75% better Goal Progress: Goal Met Goal 2:: I appropr management of condition. Goal Progress: Goal Met Goal 3:: Walk for fitness without increased pain Goal Progress: Goal Met Plan: d/c If there are questions or concerns regarding this patient's physical therapy, please feel free to call me at [phone]. Thank you for the referral of this patient. Sincerely, Jaswinder Trejo, DPT, OCS, CSCS Balance/Gait/Functional tests - Balance/Special Test Scores Lower Extremity Functional Score: 79
== END 2022-06-09 07:57 | disposition home or self-care (01) ==
LOC: PT 07:00
PROVIDERS: PCP Nurse Practitioner Primary Care; Referring Provider Student in an Organized Health Care Education/Training Program; Visit Provider Student in an Organized Health Care Education/Training Program
DX: M65.262 Calcific tendinitis, left lower leg (principal); M76.62 Achilles tendinitis, left leg
CPT/HCPCS: 97035; 97110; 97140; 97161; 97164; 97530

== ENCOUNTER → 2022-11-29 | Outpatient (CLI) | payer OTHER, SELFPAY ==
[2022-12-05 20:30] LABS: HPV APTIMA, High Risk Negative (Negative)
== END | disposition home or self-care (01) ==
LOC: LABSPEC 11:44
PROVIDERS: PCP Nurse Practitioner Primary Care; Visit Provider Obstetrics & Gynecology
DX: Z12.4 Encounter for screening for malignant neoplasm of cervix (principal)
CPT/HCPCS: 87624; 88175; G0145